=== PATIENT | female | born 1980 ===

== ENCOUNTER 2021-07-15 14:28 | Emergency (ER) | payer OTHER, BC ==
[2021-07-15] MEDS ORDERED: Acetaminophen 500 MG TAB ONE (14:35)
== END 2021-07-15 14:58 | disposition home or self-care (01) ==
LOC: MADERS 14:28
DX: S16.1XXA Strain of muscle, fascia and tendon at neck level, initial encounter (principal); S80.11XA Contusion of right lower leg, initial encounter; I10 Essential (primary) hypertension; E03.9 Hypothyroidism, unspecified; Z79.899 Other long term (current) drug therapy; V43.52XA Car driver injured in collision with other type car in traffic accident, initial encounter
CPT/HCPCS: 99284